=== PATIENT | female | born 1990 | race Caucasian/White ===

== ENCOUNTER 2023-04-04 16:27 | Emergency (ER) | payer OTHER ==
[2023-04-04] MEDS ORDERED: LIDOCAINE 1% MPF 5 ML VIAL ONE (17:09)
--- NOTE | 2023-04-04 17:26 | ER ---
Nurse's Notes [facility] Name: Nani Hodge Age: 33 yrs Sex: Female : 1990 Arrival Date: 04/04/2023 Time: 16:27 Bed 12 Private MD: Diagnosis: Abscess of Bartholin's gland Presentation: 04/04 16:45 Chief complaint: Patient states: knot inside of vagina for 1.5-2 weeks. Coronavirus ko1 screen: At this time, the client does not indicate any symptoms associated with coronavirus-19. Ebola Screen: No symptoms or risks identified at this time. Initial Sepsis Screen: Does the patient meet any 2 criteria? No. Patient's initial sepsis screen is negative. Does the patient have a suspected source of infection? No. Patient's initial sepsis screen is negative. Risk Assessment: Do you want to hurt yourself or someone else? Patient reports no desire to harm self or others. Onset of symptoms is unknown. 16:45 Method Of Arrival: Ambulatory ko1 16:45 Acuity: PATRICIA 3 ko1 Triage Assessment: 16:46 General: Appears in no apparent distress. comfortable, Behavior is calm, cooperative, ko1 appropriate for age. Pain: Complains of pain in vagina. Historical: - Allergies: 16:46 No Known Allergies; ko1 - Home Meds: 16:46 None [Active]; ko1 - PMHx: 16:46 None; ko1 - PSHx: 16:46 Cholecystectomy; section; ko1 - Immunization history:: Adult Immunizations unknown, Client reports having NOT received the Covid vaccine. - Social history:: Smoking status: Patient denies any tobacco usage or history of. Screenin:48 [facility] ED Fall Risk Assessment (Adult) History of falling in the last 3 months, ko1 including since admission No falls in past 3 months (0 pts) Confusion or Disorientation No (0 pts) Intoxicated or Sedated No (0 pts) Impaired Gait No (0 pts) Mobility Assist Device Used No (0 pt) Altered Elimination No (0 pt) Score/Fall Risk Level 0 - 2 = Low Risk Oriented to surroundings, Maintained a safe environment, Educated pt \T\ family on fall prevention, incl call for assistance when getting out of bed, Assessed \T\ reinforced patient's understanding of fall precautions, Provided non-skid footwear, Hourly rounding (assess needs \T\ fall precautionary measures) done, Used ambulatory aids as needed (educated on \T\ assisted with), Used gait belt as appropriate. Abuse screen: Denies threats or abuse. Nutritional screening: No deficits noted. Tuberculosis screening: No symptoms or risk factors identified. Assessment: 16:48 Neuro: No deficits noted. Cardiovascular: No deficits noted. Respiratory: No deficits ko1 noted. GI: No deficits noted. : No deficits noted. EENT: No deficits noted. Derm: No deficits noted. Musculoskeletal: No deficits noted. Vital Signs: 16:53 BP 130 / 74; Pulse 81; Resp 18; Temp 97.4(O); Pulse Ox 99% on R/A; Weight 68.04 kg; ko1 Height 5 ft. 4 in. ; 16:53 Body Mass Index 25.75 (68.04 kg, 162.56 cm) ko1 ED Course: 16:29 Patient arrived in ED. mr 16:30 Lisa Serrano FNP-C is [facility]. kb 16:30 Charli Ham MD is Attending Physician. kb 16:35 Eve Munoz, ELIZA is Primary Nurse. ko1 16:46 Triage completed. ko1 16:46 Arm band placed on right wrist. Patient placed in an exam room, on a stretcher, on ko1 pulse oximetry, Patient notified of wait time. 16:48 Patient has correct armband on for positive identification. Placed in gown. Bed in low ko1 position. Call light in reach. Side rails up X 1. Pulse ox on. NIBP on. Door closed. Noise minimized. Warm blanket given. 17:27 Assist provider with I \T\ D: of an abscess on Bartholin's gland Set up I\T\D tray. ko 1 Performed by Lisa BURNETT Patient tolerated well. Patient did not have IV access during this emergency room visit. Administered Medications: 17:21 Drug: Lidocaine Infiltration (1 %) 1 vials Volume: 5 ml; Route: Infiltration; ko1 17:27 Drug: Amoxicillin-Clavulanate PO 875 mg Route: PO; ko1 Medication: 16:48 VIS not applicable for this client. ko1 Outcome: 17:25 Discharge ordered by . kb 17:27 Discharged to home ambulatory. ko1 17:27 Condition: stable 17:27 Discharge instructions given to patient, Instructed on discharge instructions, follow up and referral plans. medication usage, Demonstrated understanding of instructions, follow-up care, medications, Prescriptions given X 1. 17:30 Patient left the ED. ko1 Signatures: Lisa Serrano, [employer]-C [employer]-Aura De Jesus mr Eve Munoz, RN RN ko1
--- NOTE | 2023-04-04 17:26 | EDPHYS ---
Physician Documentation [facility] Name: Nani Hodge Age: 33 yrs Sex: Female : 1990 Arrival Date: 04/04/2023 Time: 16:27 Bed 12 Private MD: ED Physician Charli Ham HPI: 04/04 17:24 This 33 yrs old Female presents to ER via Ambulatory with complaints of Vaginal problem.kb 17:24 The patient presents with an abscess of the right labia minora. Description: kb erythematous, swollen. Onset: The symptoms/episode began/occurred 1.5 week(s) ago. Possible cause(s): unknown. Associated signs and symptoms: Pertinent positives: erythema, swelling, Pertinent negatives: discharge, drainage, foreign body sensation, fever, headache, nausea, shortness of breath, vomiting. Modifying factors: the symptoms are alleviated by nothing, the symptoms are aggravated by movement. Severity of symptoms: At their worst the symptoms were moderate, in the emergency department the symptoms are unchanged. The patient has not experienced similar symptoms in the past. The patient has not recently seen a physician. Historical: - Allergies: 16:46 No Known Allergies; ko1 - Home Meds: 16:46 None [Active]; ko1 - PMHx: 16:46 None; ko1 - PSHx: 16:46 Cholecystectomy; section; ko1 - Immunization history:: Adult Immunizations unknown, Client reports having NOT received the Covid vaccine. - Social history:: Smoking status: Patient denies any tobacco usage or history of. ROS: 17:22 Constitutional: Negative for fever, chills, and weight loss. kb 17:22 Skin: Positive for abscess, of the right labia minora. 17:22 All other systems are negative. Exam: 17:22 Constitutional: This is a well developed, well nourished patient who is awake, alert, kb and in no acute distress. Head/Face: Normocephalic, atraumatic. ENT: Moist Mucous membranes Cardiovascular: Regular rate and rhythm with a normal S1 and S2. No gallops, murmurs, or rubs. No pulse deficits. Respiratory: Respirations even and unlabored. No increased work of breathing. Talking in full sentences MS/ Extremity: Pulses equal, no cyanosis. Neurovascular intact. Full, normal range of motion. Neuro: Awake and alert, GCS 15, oriented to person, place, time, and situation. Moves all extremities. Normal gait. 17:22 Skin: abscess, that is moderate sized, of the right labia minora, with fluctuance, that is moderate. Vital Signs: 16:53 BP 130 / 74; Pulse 81; Resp 18; Temp 97.4(O); Pulse Ox 99% on R/A; Weight 68.04 kg; ko1 Height 5 ft. 4 in. ; 16:53 Body Mass Index 25.75 (68.04 kg, 162.56 cm) ko1 Procedures: 17:23 I \T\ D: Incision and drainage was performed for an abscess of the right Bartholin's kb gland. Prepped with Betadine, Anesthetized with 2 ml's 1% Lidocaine. Incised with #11 blade. Drained large amount purulent fluid. Packed with Word catheter. the patient tolerated the procedure well. MDM: 16:37 Patient medically screened. kb 17:23 Data reviewed: vital signs, nurses notes. kb 17:25 Differential diagnosis: abscess, cellulitis, bartholins cyst. Counseling: I had a kb detailed discussion with the patient and/or guardian regarding: the historical points, exam findings, and any diagnostic results supporting the discharge/admit diagnosis, the need for outpatient follow up, an OB/Gyne specialist, to return to the emergency department if symptoms worsen or persist or if there are any questions or concerns that arise at home. 04/04 17:21 Order name: I\T\D Setup; Complete Time: 17:21 kb Administered Medications: 17:21 Drug: Lidocaine Infiltration (1 %) 1 vials Volume: 5 ml; Route: Infiltration; ko1 17:27 Drug: Amoxicillin-Clavulanate PO 875 mg Route: PO; ko1 Disposition: 17:42 Co-signature as Attending Physician, Charli Ham MD I reviewed the patient's care rt provided by the Advanced Practice Provider and agree with the diagnosis and treatment plan. Disposition Summary: 04/04/23 17:25 Discharge Ordered Location: Home kb Condition: Stable kb Diagnosis - Abscess of Bartholin's gland kb Followup: kb - With: Emergency Department - When: As needed - Reason: Worsening of condition Followup: kb - With: Private Physician - When: 2 - 3 days - Reason: Recheck today's complaints, Continuance of care, Re-evaluation by your physician Discharge Instructions: - Discharge Summary Sheet kb - Bartholin's Cyst, [id number] kb - Bartholin's Cyst Incision and Drainage kb Forms: - Medication Reconciliation Form kb - Thank You Letter kb - Antibiotic Education kb - Prescription Opioid Use kb Prescriptions: - Augmentin 875-125 mg Oral Tablet - take 1 tablet by ORAL route every 12 hours for 10 days; 20 tablet; Refills: 0, kb Product Selection Permitted Signatures: Lisa Serrano FNP-C AGUS-Eve Meyers, RN RN ko1 Charli Ham MD MD rt
[2023-04-04] MEDS ORDERED: AMOX/K CLAV 875 MG TAB ONE (17:32)
== END 2023-04-04 17:30 | disposition home or self-care (01) ==
LOC: ER 16:27
PROC: 0U9LXZZ Drainage of Vestibular Gland, External Approach (ICD-10-PCS; principal; 2023-04-04)
DX: N75.1 Abscess of Bartholin's gland (principal)
CPT/HCPCS: 56420; J2001